=== PATIENT | female | born 1945 | race Caucasian/White ===

== ENCOUNTER 2019-04-27 19:47 | Inpatient (IN) | payer OTHER ==
[~2019-04-27] VITALS: Ht 157.5 cm; Wt 49.9 kg
[2019-04-27 19:53] VITALS: Ht 157.5 cm; Wt 49.9 kg
--- NOTE | 2019-04-27 20:02 | NUR ---
PT BIB [facility] FOR ALOC. PER MEDIC, SON WENT TO CHECK ON HER, FOUND HER ALTERED AND CALLED 911. SON STS THIS IS NOT NORMAL, SHE IS NOT USUALLY ALTERED, AND TAKES CARE OF HERSELF AND . MEDIC STS HX OF DM, MEDICS BS IN ROUTE READ HIGH, NO READING. PUPILS CONSTRICTED AND NON-REACTIVE EN ROUTE. PT NON-VERBAL, INCOMPREHENSIBLE MOANING. PT NOT FOLLOWING COMMANDS, RESPONDS TO PAINFUL STIMULI. PT TACHYPNEIC, SATURATING AT 100% ON RA. PT PLACED ON STOPPER GRINDER AND PULSE OX, AND CAPNOGRAPHY.
--- NOTE | 2019-04-27 20:17 | NUR ---
PT TAKEN TO CT VIA [facility]
--- NOTE | 2019-04-27 20:21 | NUR ---
X-RAY AT BEDSIDE
--- NOTE | 2019-04-27 20:45 | NUR ---
NICHELLE RN AT BEDSIDE TO ASSIST W/ RECTAL TEMP, TERESA INSERTION, AND CLEAN UP OF SOILED DIAPER. LAB AT BEDSIDE FOR DRAW, RT AT BEDSIDE FOR ABG
--- NOTE | 2019-04-27 21:13 | NUR ---
FAMILY AT BEDSIDE. PT NOW RESPONDING TO VERBAL COMMANDS
[2019-04-27 21:21] LABS: PLATELET COUNT 243 x10^3mcL (130-400)
--- NOTE | 2019-04-27 21:38 | NUR ---
FAMILY AT BEDSIDE. PT NOW NOT RESPONDING TO VERBAL STIMULI. PT GRIMACES WITH PAINFUL STIMULI. PT STILL MOANING INCOMPREHENSIBLY. WILL CONTINUE TO MONITOR.
[2019-04-27 21:45] LABS: BAND NEUTROPHIL 3 % (0-10); MONOCYTE 8 % (0-7); SEGMENTED NEUTROPHILS 79 % (37-75)
[2019-04-27 21:49] LABS: ALKALINE PHOSPHATASE 165 U/L (46-116); ALT/SGPT 14 U/L (14-59); AST/SGOT 12 U/L (15-37); BILIRUBIN TOTAL 0.53 mg/dL (0.20-1.00); CHLORIDE SERUM 96 mmol/L (98-107); CREATININE SERUM 2.3 mg/dL (0.6-1.0); PLATELET MORPHOLOGY PLATELETS NORMAL; SODIUM SERUM 132 mmol/L (136-145); acanthocyte (spur cell) 2+; rbc morphology (normal/abnorm) ABNORMAL (NORMAL)
[2019-04-27 21:50] LABS: ALBUMIN 2.3 g/dL (3.4-5.0); TOTAL PROTEIN, SERUM 5.9 g/dL (6.4-8.2)
[2019-04-27 21:52] LABS: CARBON DIOXIDE 4.5 mmol/L (21-32); POTASSIUM SERUM 6.6 mmol/L (3.5-5.1)
--- NOTE | 2019-04-27 22:02 | NUR ---
BS READING HIGH. DOUBLE-CHECKED W/ DR. AGARWAL TO STRT INSULIN DRIP. INSULIN DRIP STARTED PER MD ORDER
--- NOTE | 2019-04-27 22:03 | NUR ---
AT BEDSIDE FOR NEURO CHECK. PT STILL NOT RESPONDING TO VERBAL STIMULI. PT RESPONDING TO PAINFUL STIMULI.
[2019-04-27 22:09] LABS: MAGNESIUM 2.6 mg/dL (1.8-2.4); PHOSPHOROUS 7.9 mg/dL (2.5-4.9)
[2019-04-27 22:10] LABS: CK-MB 1.9 ng/mL (0-3.6); GLUCOSE SERUM 1076 mg/dL (74-106)
[2019-04-27] MEDS ORDERED: LANTUS SOLOS100 U/M1 SQ (22:10)
--- NOTE | 2019-04-27 22:10 | NUR ---
AT BEDSIDE. MD VERBAL ORDER TO CHANGE NS INFUSION FROM 250ML/HR TO BOLUS DUE TO LOW BP
--- NOTE | 2019-04-27 22:30 | NUR ---
ACCOMPANIED PT TO CT VIA [facility] FOR CT SCAN
--- NOTE | 2019-04-27 22:35 | NUR ---
NOREPI TITRATED FROM 2MCG/MIN TO 4MCG/MIN PER MD ORDER
--- NOTE | 2019-04-27 22:55 | NUR ---
PER MD, MAP IS GOOD. LEAVE NOREPI AT 4MCG/MIN
--- NOTE | 2019-04-27 23:19 | NUR ---
PT NOT RESPONDING TO VERBAL STIMULI, WILL NOT FOLLOW CAOMMANDS. PT RESPONDS TO PAINFUL STIMULI BY GROANING AND WIDENING EYES
--- NOTE | 2019-04-27 23:34 | NUR ---
PT IN SUPINE POSITION, RESPONDING ONLY TO PAINFUL STIMULI, PT NON-VERBAL, NOT FOLLOWING COMMANDS. FAMILY AT BEDSIDE. AWAITING RESULTS. WILL CONTINUE TO MONITOR.
[2019-04-27 23:36] LABS: microscopic required? YES; urine erythrocyte 3+ (NEGATIVE)
[2019-04-27 23:45] LABS: CALCIUM 7.6 mg/dL (8.5-10.1); CHLORIDE SERUM 101 mmol/L (98-107); CREATININE SERUM 2.3 mg/dL (0.6-1.0); POTASSIUM SERUM 4.5 mmol/L (3.5-5.1); SODIUM SERUM 139 mmol/L (136-145)
[2019-04-27 23:53] LABS: CARBON DIOXIDE 3.2 mmol/L (21-32); GLUCOSE SERUM 852 mg/dL (74-106)
[2019-04-28 00:03] LABS: AMPHETAMINE QUAL UR NONE DETECTED (See below)
--- NOTE | 2019-04-28 00:14 | NUR ---
FAMILY AT BEDSIDE. PT STILL ON RESPONDING TO PAINFUL STIMULI, NON-VERBAL, NOT FOLLOWING COMMANDS. AWAITING CT RESULTS. WILL CONTINUE TO MONITOR.
--- NOTE | 2019-04-28 01:19 | NUR ---
PER SALVADOR HI WITH CURRENT BP: 102/49 (60). KEEP LEVOPHED AT 4MCG/MIN.
--- NOTE | 2019-04-28 01:43 | NUR ---
PT LAYING IN SUPINE POSITION. PT NOT RESPONDING TO VERBAL COMMANDS, GROANS AND FLINCHES TO PAINFUL STIMULI. MAP AT 60, MD AWARE. WILL CONTINUE TO MONITOR. AWAITING CT RESULTS.
--- NOTE | 2019-04-28 01:54 | NUR ---
PT RECTAL TEMP 97.7. PER MD, PT IS NORMOTHERMIC AND THE HEATING BLANKET CAN BE REMOVED. RECTAL TEMPERATURE PROBE LEFT IN PLACE FOR CONTINUOUS CORE TEMP MEASUREMENT. BLANKET REMOVED. WILL CONTINUE TO MONITOR.
--- NOTE | 2019-04-28 02:25 | NUR ---
REPORT GIVEN TO PATRICK MAURICIO
[2019-04-28 02:58] LABS: CALCIUM 7.5 mg/dL (8.5-10.1); CHLORIDE SERUM 108 mmol/L (98-107); CREATININE SERUM 2.3 mg/dL (0.6-1.0); POTASSIUM SERUM 3.8 mmol/L (3.5-5.1); SODIUM SERUM 142 mmol/L (136-145)
[2019-04-28 03:00] LABS: CARBON DIOXIDE 5.2 mmol/L (21-32); GLUCOSE SERUM 716 mg/dL (74-106)
--- NOTE | 2019-04-28 03:20 | NUR ---
RECEIVED CALL FROM [employer] WITH INFORMATION TO TRANSFER PATIENT TO HIGHER LEVEL OF CARE PER DOCTOR AGARWAL. INITIAL CONTACT IS [facility], AND INFORMATION WERE GIVEN TO RJ (INFECTION PREVENTION COORDINATOR). ILLIGIBILITY BEING REVIEWED.
[2019-04-28 03:22] VITALS: BP 108/78
--- NOTE | 2019-04-28 04:38 | NUR ---
3735- CALLED [facility] FOR TRANSFER TO HIGHER LEVEL OF CARE FOR NEURO CONSULT SECONDARY TO RESULT OF CT SCAN FOR POSSIBLE EPIDURAL HEMATOMA. CRIS CHARGE NURSE ICU FOLLOW UP TRANSFER PAPER WORK. 1383- CALLED [facility] TRANSF[facility] AND THEY ARE IN CAPACITY.
--- NOTE | 2019-04-28 05:05 | NUR ---
DR. AGARWAL GOT HOLD OF DR. BARCLAY, THE ACCEPTING DOCTOR AT [facility]. WAITING FOR A CALL FROM THE CHILD AND FAMILY SERVICES SPECIALIST.
[2019-04-28 05:13] LABS: CHLORIDE SERUM 110 mmol/L (98-107); CREATININE SERUM 2.3 mg/dL (0.6-1.0); MAGNESIUM 2.1 mg/dL (1.8-2.4); PHOSPHOROUS 1.2 mg/dL (2.5-4.9); POTASSIUM SERUM 3.3 mmol/L (3.5-5.1); SODIUM SERUM 145 mmol/L (136-145)
[2019-04-28 05:19] LABS: CARBON DIOXIDE 5.3 mmol/L (21-32); GLUCOSE SERUM 611 mg/dL (74-106)
--- NOTE | 2019-04-28 05:20 | NUR ---
[facility] CONTACTED FOR AVAILABILITY OF BED AND SPOKE TO OMAIRA.
--- NOTE | 2019-04-28 05:29 | NUR ---
FOLLOW UP CALL, AND SPOKE TO RJ, THEY STILL HAVE NO BED AT THIS TIME.
--- NOTE | 2019-04-28 05:45 | NUR ---
SPOKE TO RJ HEAD TRIMMER FROM [facility], PATIENT IS ACCEPTED UNDER THE SERVICE OF DR RATNA BARCLAY, GOING TO ROOM 4231, WITH INSTRUCTION TO MAKE TRANSPORT ARRANGEMENT AFTER 0700.
[2019-04-28 05:59] VITALS: BP 128/72
--- NOTE | 2019-04-28 06:43 | NUR ---
Tried giving report to [facility], nurse said that there's no nurse for the pt at this time, call back after 7am.
--- NOTE | 2019-04-28 07:30 | NUR ---
RC'D PT RESTING IN BED WITH FAMILY PRESENT AT BEDSIDE. ALOC. PT LETHARGIC BUT WITHDRAWALS TO PAINFUL STIMULI. EENT FREE OF DRAINAGE. RESPIRATIONS E/U. LUNGS DIM IN BASES. ON RA, SPO2 99%. NO RESP DISTRESS NOTED. SINUS TACH ON MOBILE PHONE SALESPERSON. NO S/S OF CP. PALP PULSES, NO EDEMA NOTED. SKIN WARM TO TOUCH. NS INFUSING AT 25O TO THE LAC. INSULIN DRIP INFUSING @5U/HR PER PROTOCOL. GENERALIZED WEAKNESS. PT NPO AT THIS TIME. ABDOMEN SOFT AND NONTENDER. NO N/V. F/C WITH YELLOW URINE DRAINING TO GRAVITY, SECURED IN PLACE. BED IN LOWEST POSITION. PT AWAITING TRANSPORTATION AT THIS TIME FOR TRANSFER. WILL CONT TO MONITOR
--- NOTE | 2019-04-28 07:38 | NUR ---
BS 374, INSULIN DRIP INFUSING AT 5 PER INSULIN DRIP PROTOCOL
--- NOTE | 2019-04-28 07:38 | NUR ---
Report given to [facility], report given to Lelo MAURICIO. Will continue to monitor.
--- NOTE | 2019-04-28 07:59 | NUR ---
[facility] PRESENT AT BEDSIDE. REPORT GIVEN TO HARDEEP MAURICIO. RN UPDATED ON PT CURRENT STATUS. ALL QUESTIONS AND CONCERNS ADDRESSED. PT TO TRANSFER AT THIS TIME. FAMILY NOTIFIED AND MADE AWARE AT BEDSIDE.
--- NOTE | 2019-04-28 08:20 | NUR ---
BS CHECKED PRIOR TO TRANSFER, BS 332 AT THIS TIME. [facility] RN NOTIFIED AND MADE AWARE
== END 2019-04-28 08:20 | disposition short-term general hospital (02) | DRG 64 ==
LOC: ED 19:47 → IC 04-28 02:13
PROVIDERS: Emergency Medicine; ADMIT General Practice
DX: I62.1 Nontraumatic extradural hemorrhage (principal); E11.10 Type 2 diabetes mellitus with ketoacidosis without coma; N17.0 Acute kidney failure with tubular necrosis; E43 Unspecified severe protein-calorie malnutrition; Z68.1 Body mass index [BMI] 19.9 or less, adult; E87.2 Acidosis; D72.829 Elevated white blood cell count, unspecified; E86.0 Dehydration; Z79.4 Long term (current) use of insulin; Z91.14 Patient's other noncompliance with medication regimen
CPT/HCPCS: 36600; 82962; 83880; G0378; G0480; J1815; J2543; J3490; J7030; Q0092; Q9967